=== PATIENT | female | born 1995 | race American Indian/Alaskan Native ===

== ENCOUNTER 2018-09-16 17:16 | Emergency (ER) | payer OTHER ==
[2018-09-16 18:51] VITALS: BP 130/95
[2018-09-16] MEDS ORDERED: BOOSTRIX IM ONE (19:45)
--- NOTE | 2018-09-16 21:44 | Emergency Department Report ---
- General Chief Complaint: Upper Respiratory Infection Stated Complaint: DIZZINESS/COUGH Time Seen by Provider: 09/16/18 20:10 Source: patient Mode of arrival: Ambulatory Limitations: No Limitations - History of Present Illness Initial Comments: Patient is a 22-year-old female presents the emergency room with complaints of a cough that began last week. she states she has associated mucus production. She states she has associated subjected fever, chills, generalized body aches, rhinorrhea. Denies any sick contacts. The patient denies any past medical history allergies to medications. States she is currently on her menstrual cycle. - Related Data Allergies Allergy/AdvReac Type Severity Reaction Status Date / Time No Known Allergies Allergy Unverified 09/16/18 17:35 ED Review of Systems ROS: Stated complaint: DIZZINESS/COUGH Other details as noted in HPI Comment: All other systems reviewed and negative ED Past Medical Hx - Past Medical History Previous Medical History?: No - Surgical History Past Surgical History?: No - Social History Smoking Status: Never Smoker Substance Use Type: Marijuana ED Physical Exam - General Limitations: No Limitations General appearance: alert, in no apparent distress - Head Head exam: Present: atraumatic, normocephalic - Eye Eye exam: Present: normal appearance, PERRL, EOMI - ENT ENT exam: Present: normal orophraynx, mucous membranes moist, other (pale boggy turbinates with clear nasal discharge ) - Respiratory Respiratory exam: Present: normal lung sounds bilaterally. Absent: respiratory distress, wheezes, rales, rhonchi, stridor, chest wall tenderness, accessory muscle use, decreased breath sounds, prolonged expiratory - Cardiovascular Cardiovascular Exam: Present: regular rate, normal rhythm, normal heart sounds. Absent: systolic murmur, diastolic murmur, rubs, gallop - Neurological Exam Neurological exam: Present: alert, oriented X3 - Psychiatric Psychiatric exam: Present: normal affect, normal mood - Skin Skin exam: Present: warm, dry, intact ED Course Vital Signs 09/16/18 18:46 Temperature 98.4 F Pulse Rate 72 Respiratory 22 Rate Blood Pressure 130/95 O2 Sat by Pulse 100 Oximetry ED Medical Decision Making - Medical Decision Making Patient is a 22-year-old female presents the emergency room with complaints of a cough that began last week. she states she has associated mucus production. She states she has associated subjected fever, chills, generalized body aches, rhinorrhea. Denies any sick contacts. The patient denies any past medical history allergies to medications. States she is currently on her menstrual cycle. vitals are normal. on exam: pale boggy turbinates with clear nasal discharge, lungs are clear bilaterally without w/r/r. discussed with pt that we would do a CXR to r/o PNA. pt signed consent form stating not for CXR. pt signed out AMA with nurse prior to receiving CXR. - Differential Diagnosis PNA, URI, viral syndrome, sinusitis, allergies, allergic rhinitis Critical care attestation.: If time is entered above; I have spent that time in minutes in the direct care of this critically ill patient, excluding procedure time. ED Disposition Clinical Impression: Cough, Rhinorrhea, Generalized body aches Disposition: DC- LEFT AGAINST MED ADVICE Is pt being admited?: No Does the pt Need Aspirin: No Condition: Undetermined Referrals: АНДРЕЙ ESCALANTE MD [Primary Care Provider] - 2-3 Days Forms: AMA Form Time of Disposition: 05:17
== END 2018-09-16 21:16 | disposition left against medical advice (07) ==
LOC: ED 17:16
DX: R05 Cough (principal); R50.9 Fever, unspecified; J34.89 Other specified disorders of nose and nasal sinuses; M79.18 Myalgia, other site; F12.90 Cannabis use, unspecified, uncomplicated
CPT/HCPCS: 90715; 99282